=== PATIENT | female | born 1970 | race Caucasian/White ===

== ENCOUNTER 2023-10-08 08:49 | Outpatient (CLI) | payer BC, SELFPAY ==
--- OUTSIDE RECORDS SUMMARY | 2023-10-08 08:52 | XMS_ITS | Encounter Summary ---
Author Organization [facility] er Address [address] [place] [id number] Care Team Providers Care Whiskey Regauger Name Role Phone Rajan Montez MD Primary Care Provider [phone] Reason for Visit * Reason Comments Med Refill Encounter Details Date Type Department Care Team (Late st Contact Info) Description 12/20/2021 Refill [place] [address] [address] Anabella Menon MD 170[facility] [address] [place] [address] Essential hypertension Social History Tobacco Use Types Packs/Day Years Used Date Smoking Tobacco: Former Cigarettes 0.3 10 Smokeless Tobacco: Never Alcohol Use Standard Drinks/Week Comments Yes 2 (1 standard drink = 0.6 oz pur e alcohol) AUDIT-C Answer Date Recorded Q1: How often do you have a drink containing alc ohol? 2-3 times a week 01/08/2020 Q2: How many drinks containi ng alcohol do you have on a typical day when you are drinking? 1 or 2 01/08/2020 Frequency of Binge Drinking Not on file 12/29 PHQ-2 Answer Date Recorded PHQ-2 Score 0 02/20/2019 Sex and Gender Information Value Date Recorded Sex Assigned at Not on file Gender Identity Not on file Sexual Orientation Not on file documented as of this encounter Miscellaneous Notes * Telephone Encounter - Anabella Menon MD - 12/22/2021 7:44 AM CDT Guillermo I will have you review Diane Larry request for her Cozaar. * Telephone Encounter - Cheryle Vásquez MA - 12/22/2021 6:07 AM CDT Last visit in provider department: 01/08/2020 Last visit requested medication was discussed: 01/08/2020 Last Rx: 07/05/2021 # 90, 1 refill Requested Prescriptions Pending Prescriptions Disp Refills ??? losartan (COZAAR) 25 MG tablet [Pharmacy Med Name: LOSARTAN TAB 25MG] 90 tablet 1 Sig: TAKE 1 TABLET DAILY FOR BLOOD PRESSURE Vitals: BP Readings from Last 2 Encounters: 01/08/20 124/80 08/07/19 124/88 Upcoming appointment with provider: Visit date not found Pt due to be seen. Please work with your PSR to help pt set up appt. Please advise on extension until appt. documented in this encounter Plan of Treatment Not on file documented as of this encounter Visit Diagnoses Diagnosis Essential hypertension Unspecified essential hypertension documented in this encounter Care Teams Whiskey Regauger Relationship Specialty Start Date End Date Rajan Montez MD [address] [facility] [address] [place] [address] PCP - General Family Medicine 05/11/22 documented as of this encounter
--- OUTSIDE RECORDS SUMMARY | 2023-10-08 08:52 | XMS_ITS | Clinical Summary ---
Author Organization [facility] er Address [address] [place] [address] Care Team Providers Care Chemistry Teacher Name Role Phone Rajan Montez MD Primary Care Provider [phone] Allergies Active Allergy Reactions Criticality Noted Date Comments Seasonal Other (see comments) Low 08/14/2019 Watery eyes Medications Medication Sig Dispensed Refills Start Date End Date Status Multiple Vitamins-Minerals (DAILY MULTIVITAMIN) capsule Take by mouth 1 (one) time each day Active MAGNESIUM-POTASSIUM PO Take 2 tablets by mouth 1 (one) time each day Active UNABLE TO FIND Med Name: [place], Wild Lettuce, Valerian, Wyocena's Warts, Passion Flower, Milky Oats Active Ferrous Sulfate (Iron) 325 (65 Fe) MG tablet Take by mouth Active fluconazole (Diflucan) 150 MG tabletIndications:Int ertrigo Take one tablet by mouth weekly for 4 weeks. 4 tablet 12/04/2022 Active gabapentin (Neurontin) 600 MG tabletIndications:Hot flashes Take 1 tablet (600 mg total) by mouth 2 (two) times a day 180 tablet 2 01/01/2023 Active amLODIPine (NORVASC) 5 MG tabletIndications:[place] hypertension TAKE 1 TABLET EVERY NIGHT 90 tablet 1 04/29/2023 Active losartan (COZAAR) 25 MG tabletIndications:[place] hypertension TAKE 1 TABLET TWICE A DAY FOR BLOOD PRESSURE 180 tablet 08/01/2023 Active Active Problems Problem Noted Date Diagnosed Date Menopausal symptoms 05/12/2022 Hot flashes 05/12/2022 Primary hypertension 02/28/2022 Encounters Date Type Department Care Team Description 07/30/2023 Refill [place] [address] [place] [address] Rajan Montez MD Primary hypertension from Last 3 Months Immunizations Name Administration Dates Next Due Influenza 6mo-64yrs Quad Preservative Free IM Tdap 06/01/2016 Family History Medical History Relation Comments Multiple sclerosis Daughter Dementia Father lewy body flores [place] Fibromyalgia Mother Thyroid cancer Paternal Grandmother Relation Status Comments Brother Alive Daughter Alive Father Mother Alive Paternal Grandmother Sister Alive Son Alive Social History Tobacco Use Types Packs/Day Years Used Date Smoking Tobacco: Former Cigarettes 0.3 10 1 999 - 2008 Smokeless Tobacco: Never Tobacco Cessation:Counseling Given: No Alcohol Use Standard Drinks/Week Comments Yes 2 [...] on file 12/29 PHQ-2 Answer Date Recorded PHQ-9 Total Score 0 12/04/2022 Sex and Gender Information Value Date Recorded Sex Assigned at Not on file Gender Identity Not on file Sexual Orientation Not on file Last Filed Vital Signs Vital Sign Reading Time Taken Comments Blood Pressure 137/93 12/04/2022 2:05 PM CDT Pulse 78 12/04/2022 2:05 PM CDT Temperature 36.9 ??C (98.4 ??F) 12/04/2022 2:05 PM CD T Respiratory Rate 12 12/04/2022 2:05 PM CDT Oxygen Saturation 97% 12/04/2022 2:05 PM CDT Inhaled Oxygen Concentration - - Weight 75.4 kg (166 lb 4.8 oz) 12/04/2022 2:05 P M CDT Height 168.5 cm (5' 6.34) 12/04/2022 2:05 PM CD T Body Mass Index 26.57 12/04/2022 2:05 PM CDT Plan of Treatment Health Maintenance Due Date Last Done Comments CT Colonography 1970 Colonoscopy 1970 Colorectal Cancer Screening 1970 FIT-DNA 1970 Sigmoidoscopy 1970 iFOBT 1970 Zoster Vaccines (1 of 2) 2020 COVID-19 Vaccine (3 - 2022-2 4 season) 2022 08/24/2020, 07/15/2020 Mammogram 03/22/2023 03/22/2022 Pap Smear 04/06/2023 04/06/2020, 04/06/2020 Influenza Vaccine (Season Ended) 2023 04/06/2020 DTaP,Tdap,and Td Vaccines (2 - Td or Tdap) 06/01/2026 06/01/2016 HPV Vaccines Aged Out No longer eligi ble based on patient's age to complete this topic Pneumococcal Vaccine: Pediatrics (0 to 5 Years) and At-Risk Patients (6 to 64 Years) Aged Out No longer eligible b ased on patient's age to complete this topic Procedures Procedure Name Priority Date/Time Associated Diagnosis Comments PAP TEST Routine 04/06/2020 3:50 PM OFFICE HELPER CLERICAL from Last 3 Months or Most Recently Relevant to Health Maintenance Care Teams Chemistry Teacher Relationship Specialty Start Date End Date Rajan Montez MD [address] [place] [address] PCP - General Family Medicine 05/11/22
--- OUTSIDE RECORDS SUMMARY | 2023-10-08 08:52 | XMS_ITS | Clinical Summary ---
Author [facility] Address [address] [place] [address] Care Team Providers Care Inspector Crystal Name Role Phone Pcp, Pt Declines Primary Care Provider [phone] Source Comments You are receiving this document as you are listed as the primary care provider,follow-up provider, or the patient has been referred to you for consultation.This is in compliance with the Medicare and[facility] EHR Incentive Program,which states Providers who transition their patient to another setting of careor provider of care or refers their patient to another provider of care shouldprovide summary care record for each transition of care or referral. [place] Allergies No known active allergies Medications Medication Sig Dispensed Refills Start Date End Date Status losartan (COZAAR) 25 MG tablet 10/17/2019 Active HYDROcodone-acetamino phen (NORCO) 5-325 MG tablet Take 1-2 Tablets by mouth every 4 hours as needed for Pain (severe pain). 30 Tablet 01/15/2020 Active Additional Information Patient not taking.Reported on 02/16/2020 ketorolac (TORADOL) 10 MG tablet Take 1 Tablet by mouth every 6 hours. Take every 6 hours for 3 days, then as needed. 20 Tablet 01/15/2020 Active Additional Information Patient not taking.Reported on 01/26/2020 ondansetron (ZOFRAN-ODT) 4 MG disintegrating tablet Take 1 Tablet by mouth every 6 hours as needed for Nausea. 10 Tablet 01/15/2020 Active Additional Information Patient not taking.Reported on 01/26/2020 hydrOXYzine HCl (ATARAX) 25 MG tablet Take 1 Tablet by mouth every 6 hours as needed for Itching, Anxiety or Pain. 15 Tablet 01/15/2020 Active Additional Information Patient not taking.Reported on 07/21/2020 Social History Tobacco Use Types Packs/Day Years Used Date Smoking Tobacco: Former Smokeless Tobacco: Never Alcohol Use Standard Drinks/Week Comments Not Asked 2 (1 standard drink = 0.6 oz pur e alcohol) Sex and Gender Information Value Date Recorded Sex Assigned at Not on file Gender Identity Not on file Sexual Orientation Not on file Last Filed Vital Signs Vital Sign Reading Time Taken Comments Blood Pressure 131/83 01/15/2020 2:37 PM CDT Pulse 54 01/15/2020 2:37 PM CDT Temperature 36.4 ??C (97.6 ??F) 01/15/2020 1:40 PM CD T Respiratory Rate 16 01/15/2020 2:37 PM CDT Oxygen Saturation 100% 01/15/2020 2:37 PM CDT Inhaled Oxygen Concentration - - Weight 62.6 kg (138 lb) 01/15/2020 8:30 AM CDT Height 166.4 cm (5' 5.5) 01/15/2020 8:30 AM CDT Body Mass Index 22.62 01/15/2020 8:30 AM CDT Plan of Treatment Health Maintenance Due Date Last Done Comments Cervical Cancer Screening Due 1970 Colon Cancer Screening Plan Due 1970 Hep C Screening (Preventive Services) 1970 HIV Screening (Preventive Services) 1986 Adult Preventive Visit 1988 HepB (1) 1989 Cholesterol 2015 Zoster/Shingles (1 of 2) 2020 Mammogram 04/09/2021 04/09/2020 COVID-19 Vaccine (3 - 2022-2 4 season) 2022 08/24/2020, 07/15/2020 Influenza (Season Ended) 2023 04/06/2020 DTaP/Tdap/Td (2 - Tdap) 06/01/2026 06/01/2016 HepA Aged Out No longer eligi ble based on patient's age to complete this topic Hib Aged Out No longer eligi ble based on patient's age to complete this topic IPV (Polio) Aged Out No longer eligi ble based on patient's age to complete this topic MCV4 Aged Out No longer eligi ble based on patient's age to complete this topic Pneumococcal Aged Out No longer eligi ble based on patient's age to complete this topic Medical Devices Implanted Type Area Outreach Liaison Device Identifier Shelf Expiration Date Model / Serial / Lot Scr Fast Thrd Bc If 8.0x20 - [id number] Implanted:Qty: 2 on 01/15/2020 by Luis Cerrato MD at [facility] Right: [employer] 09/28/2023 [id number] / [id number] Advance Directives * Full Code (Latest Code Status on File) Date Activated Date Inactivated Comments 01/15/2020 1:08 PM 01/15/2020 6:26 PM Full code in effect for 30 days Care Teams Inspector Crystal Relationship Specialty Start Date End Date Pcp, [place] [address] PCP - General 10/20/19
--- OUTSIDE RECORDS SUMMARY | 2023-10-08 08:52 | XMS_ITS | Encounter Summary ---
Author Organization [facility] er Address [address] [place] [address] Care Team Providers Care Utilities Service Investigator Name Role Phone Rajan Montez MD Primary Care Provider [phone] Encounter Details Date Type Department Care Team ([facility] st Contact Info) Description 08/07/2019 Telephone [place] [address] [place] [address] None, Pcp [address] [place] [address] Social History Tobacco Use Types Packs/Day Years Used Date Smoking Tobacco: Never Smokeless Tobacco: Never Alcohol Use Standard Drinks/Week Comments Yes 0 (1 standard drink = 0.6 oz pur e alcohol) AUDIT-C Answer Date Recorded Frequency of Alcohol Consumption 2-3 times a wee k 02/20/2019 Average Number of Drinks 1 or 2 019 Frequency of Binge Drinking Not on file 01/29 PHQ-2 Answer Date Recorded PHQ-2 Score 0 02/20/2019 Sex and Gender Information Value Date Recorded Sex Assigned at Not on file Gender Identity Not on file Sexual Orientation Not on file COVID-19 Exposure Response Date Recorded In the last month, have you been in contact with someone who was confirmed or suspected to have Coronavirus / COVID-19? No / Unsure 08/07/2019 8:05 AM CDT documented as of this encounter Plan of Treatment Not on file documented as of this encounter Visit Diagnoses Not on filedocumented in this encounter Care Teams Utilities Service Investigator Relationship Specialty Start Date End Date Rajan Montez MD [address] [address] [place] [address] PCP - General Family Medicine 05/11/22 documented as of this encounter
--- OUTSIDE RECORDS SUMMARY | 2023-10-08 08:52 | XMS_ITS | Encounter Summary ---
Author Organization [facility] er Address [address] [place] [address] Care Team Providers Care End User Consultant Name Role Phone Rajan Montez MD Primary Care Provider [phone] Reason for Visit * Reason Comments Med Refill Encounter Details Date Type Department Care Team (Late st Contact Info) Description 07/30/2023 Refill [place] [address] [address] Rajan Montez MD 170[facility] [address] [place] [address] Primary hypertension Social History Tobacco Use Types Packs/Day Years Used Date Smoking Tobacco: Former Cigarettes 0.3 10 1 - 2008 Smokeless Tobacco: Never Alcohol Use Standard Drinks/Week [...] encounter Miscellaneous Notes * Telephone Encounter - Amina Cabrera RN - 08/02/2023 7:55 AM CDT Medication approved. Pharmacy will reach out to patient when rx is ready for continuous pickling line pickler. * Telephone Encounter - Joanne Trotter MA - 08/01/2023 4:30 PM CDT Patient is due for HTN follow up med review appointment. PSR: Please contact patient to assist withscheduling. Upcoming appointment with provider: Visit date not found Last visit in provider department: 12/04/2022 Last visit requested medication was discussed: 06/02/2022 Last Rx: #180 +3 refills 06/02/2022 Requested Prescriptions Pending Prescriptions Disp Refills losartan (COZAAR) 25 MG tablet [Pharmacy Med Name: LOSARTAN TAB 25MG] 180 tablet 3 Sig: TAKE 1 TABLET TWICE A DAY FOR BLOOD PRESSURE Labs: Last labs [email or web address] 02/28/2022 Vitals: BP Readings from Last 2 Encounters: 12/04/22 (!) 137/93 11/24/22 113/76 documented in this encounter Plan of Treatment Not on file documented as of this encounter Visit Diagnoses Diagnosis Primary hypertension Unspecified essential hypertension documented in this encounter Care Teams End User Consultant Relationship Specialty Start Date End Date Rajan Montez MD [address] [place] [address] PCP - General Family Medicine 05/11/22 documented as of this encounter
--- OUTSIDE RECORDS SUMMARY | 2023-10-08 08:52 | XMS_ITS | Encounter Summary ---
Author Organization [facility] er Address [address] [place] [address] Care Team Providers Care Pocket Maker Name Role Phone Rajan Montez MD Primary Care Provider [phone] Reason for Visit * Reason Onset Date Comments Med Refill 11/13/2022 Encounter Details Date Type Department Care Team (Late st Contact Info) Description 11/13/2022 Refill [place] [address] [address] Rajan Montez MD 170[facility] [address] [place] [address] Hot flashes Social History Tobacco Use Types Packs/Day Years [...] PHQ-2 Answer Date Recorded PHQ-9 Total Score 1 06/02/2022 Sex and Gender Information Value Date Recorded Sex Assigned at Not on file Gender Identity Not on file Sexual Orientation Not on file documented as of this encounter Miscellaneous Notes * Telephone Encounter - Isha Ramsey - 11/23/2022 10:47 AM CDT Scheduled nurse only BP check for 11/24/22 * Telephone Encounter - Isha Ramsey - 11/13/2022 11:08 AM CDT LMTCB to schedule nurse only BP visit. * Telephone Encounter - Tova Charles RN - 11/13/2022 10:55 AM CDT Please call to schedule a nurse only BP visit. * Telephone Encounter - Rajan Montez MD - 11/13/2022 10:32 AM CDT Gabapentin refilled. Please have her send us or stop in for a blood pressure recheck. * Telephone Encounter - Selma Thorpe LPN - 11/13/2022 10:16 AM CDT Change in Pharmacy to [facility] Upcoming appointment with provider: Visit date not found Last visit in provider department: 06/02/2022 Last visit requested medication was discussed:06/02/22 Last Rx: 08/17/22 #90 3 refills sent to [facility] in [place] Requested Prescriptions Pending Prescriptions Disp Refills gabapentin (Neurontin) 600 MG tablet 90 tablet 3 Sig: Take 0.5 tablets (300 mg total) by mouth 2 (two) times a day if needed (hot flashes) Labs: Vitals: BP Readings from Last 2 Encounters: 06/02/22 (!) 142/81 05/11/22 (!) 158/98 Last Controlled Substance Agreement (CSA): Last Random Urine Drug Screen (RUDS): documented in this encounter Plan of Treatment Not on file documented as of this encounter Visit Diagnoses Diagnosis Hot flashes documented in this encounter Care Teams Pocket Maker Relationship Specialty Start Date End Date Rajan Montez MD [address] [place] [address] PCP - General Family Medicine 05/11/22 documented as of this encounter
--- OUTSIDE RECORDS SUMMARY | 2023-10-08 08:52 | XMS_ITS | Clinical Summary ---
Author Organization [facility] Address [place], [place] [address] Care Team Providers Care Expert Witness Name Role Phone Katie Servin CHICKEN PICKER Unavailable Pcp, No Primary Care Provider Unavailabl e Allergies No known active allergies Medications Medication Sig Dispensed Refills Start Date End Date Status losartan (COZAAR) 25 mg tabletIndications:HTN (hypertension) Take 1 Tablet (25 mg) by mouth once daily. 90 Tablet 3 03/07/2022 Active Active Problems Problem Noted Date Diagnosed Date HTN (hypertension) 02/28/2022 Immunizations Name Administration Dates Next Due Influenza, IIV4 04/06/2020 Tdap 06/01/2016 Family History Medical History Relation Name Comments No Known Problems Brother Multiple sclerosis Daughter Sandhya Thyroid Disease Daughter Sandhya Hypothyroidi sm Dementia Father Lewy-Body Demen tia Other Mother fibromyalgia Thyroid Disease Mother Cancer-breast Paternal Aunt 1 Thyroid cancer Paternal Aunt 2 Diabetes Paternal Grandfather Diabetes Paternal Grandmother Kidney disease Sister unknown origi n No Known Problems Son Religious Cancer-ovarian No Family History Relation Name Status Comments Brother Alive Daughter Sandhya Alive Father Alive Mother Alive Paternal Aunt 1 Alive Paternal Aunt 2 Alive Paternal Grandfather Paternal Grandmother Sister Alive Son Religious Alive Social History Tobacco Use Types Packs/Day Years Used Date Smoking Tobacco: Never Smokeless Tobacco: Never Tobacco Cessation:Counseling Given: Yes Alcohol Use Standard Drinks/Week Comments Yes 3 (1 standard drink = 0.6 oz pur e alcohol) everyday PHQ-2 Answer Date Recorded PHQ-2 TOTAL SCORE 1 04/06/2020 Social Connections Answer Date Recorded Frequency of Communication with Friends and Fami ly Not on file 04/30/2021 Financial Resource Strain Answer Date R ecorded Difficulty of Paying Living Expenses Not on file 04/30/2021 Difficulty of Paying Living Expenses Not on file 04/30/2021 Sex and Gender Information Value Date Recorded Sex Assigned at Not on file Gender Identity Not on file Sexual Orientation Not on file Obstetrics History Para Term AB IAB SAB Ectopic Multiple Livin g Live Births 1 0 0 0 0 0 0 0 Date Outcome GA Total Labor Labor/2nd/3rd Weight Sex Type Anes PTL Clarissa A1 A5 Name Clin Comments:System Genera kirk. Please review and update details. Last Filed Vital Signs Vital Sign Reading Time Taken Comments Blood Pressure 132/86 02/28/2022 8:28 AM CDT Pulse 71 02/28/2022 8:28 AM CDT Temperature 36.9 ??C (98.5 ??F) 02/22/2016 3:51 PM CD T Respiratory Rate 16 02/22/2016 3:51 PM CDT Oxygen Saturation 100% 02/28/2022 8:28 AM CDT Inhaled Oxygen Concentration - - Weight 69.2 kg (152 lb 9.6 oz) 02/28/2022 8:28 A M CDT Height 165.1 cm (5' 5) 04/06/2020 3:11 PM CASE RESOURCE MANAGER Body Mass Index 25.39 04/06/2020 3:11 PM CASE RESOURCE MANAGER Plan of Treatment Health Maintenance Due Date Last Done Comments HIV for age 15-65 1985 Colonoscopy through age 75 2015 Zoster (shingles) series for age 50+ (1 of 2) 2020 BMI (ht and wt on same day) for age 18+ 04/06/2021 04/06/2020 Depression screening for age 12+ 04/09/2021 04/09/2020, 04/06/2020 COVID-19 vaccine series ( season) 2022 08/24/2020, 07/15/2020 Mammogram for age 45-75 03/22/2023 03/22/20 22, 04/09/2020 Influenza for age 50-64 12/30/2023 04/06/2020 Pap test for age 21-65 04/06/2025 0, 04/06/2020 Tetanus booster 06/01/2026 06/01/2016 Lipids for age 45-75 02/28/2027 02/28/2022, 04/06/2020 Tdap Completed 06/01/2016 Hepatitis C screening for ag e 18-79 Completed 02/28/2022 Pneumococcal series for age 6-64 Aged Out No longer eligible b ased on patient's age to complete this topic Procedures Procedure Name Priority Date/Time Associated Diagnosis Comments XR MAMMO BILAT SCREEN IMPLANT Routine 03/22/2022 4:39 PM CASE RESOURCE MANAGER Encounter for screening mammogram for malignant neoplasm of breast ANTI HCV Routine 02/28/2022 9:10 AM CDT Need for hepatitis C screening test LIPID PANEL W REFLEX MEASURED LDL Routine 02/28/2022 9:10 AM CDT Screening cholesterol level INDUSTRIAL RELATIONS WORKER THIN PREP PAP SCREEN IMAGED Routine 04/06/2020 3:50 PM CASE RESOURCE MANAGER Pap smear for cervical cancer screening from Last 3 Months or Most Recently Relevant to Health Maintenance Results * XR MAMMO BILAT SCREEN IMPLANT (03/22/2022 4:39 PM CASE RESOURCE MANAGER) Anatomical Region Laterality Modality BREASTS, Breast Left, Breast Right Bilateral Mammography Impressions 03/24/2022 4:21 PM CASE RESOURCE MANAGER ??There is no radiographic evidence for malignancy. ??Recommend annual mammograms. MAMMOGRAM ASSESSMENT: ??ACR 2 Benign PATIENTS: You will also receive a letter with your examination results in an easy to read format. ??If you have questions about your results, please contact your referring provider. Narrative 03/24/2022 4:21 PM CASE RESOURCE MANAGER For Patients: As a result of the Century Cures Act, medical imaging exams and procedure reports are released immediately into your electronic medical record. You may view this report before your referring provider. If you have questions, please contact your health care provider. XR MAMMO BILAT SCREEN IMPLANT [[id number]] CLINICAL HISTORY: ??This is an asymptomatic 51 y.o. patient. INDICATION FOR EXAM: Mammogram Screening. TECHNIQUE: CC & MLO views were obtained. Implant displacement views were obtained. This study was evaluated with the assistance of Computer-Aided Detection. COMPARISON FILMS: Yes 04/09/20 [employer] ?? FINDINGS: ??The breasts are heterogeneously dense, which may obscure small masses. ??No suspicious masses or microcalcifications. ??Implant(s) within both breasts. Sarai Perezanamaria DO MAMMO * LIPID PANEL W REFLEX MEASURED LDL (02/28/2022 9:10 AM CDT) CHOLESTEROL,TOTAL 171 100 - 199 mg/dL 02/28/2022 9:59 PM CDT [facility] [employer] [facility] TRIGLYCERIDES 28 <150 mg/dL 02/28/2022 9:59 PM CDT [facility] HDL CHOLESTEROL 60 >40 mg/dL 9:59 PM CDT [facility] NON-HDL CHOLESTEROL 111 <145 mg/dl 02/28/2022 9:59 PM CDT [facility] CHOL/HDL RATIO 2.85 <4.50 02/28/2022 9:59 PM CDT [facility] LDL CHOLESTEROL 105 <=130 mg/dL 02/28/2022 9:59 PM CDT [facility] VLDL CHOLESTEROL 6 <=30 mg/dL 02/28/2022 9:59 PM CDT [facility] PROVIDER ORDERED STATUS RANDOM 02/28/2022 9:59 PM CDT [facility] Blood BLOOD SPECIMEN / Unknown Venipuncture / Unknown 02/28/2022 9:10 AM CDT 02/28/2022 9:10 AM CDT Sarai Clarissa Nini [facility] [address] [place] [address], * ANTI HCV (02/28/2022 9:10 AM CDT) HEPATITIS C ANTIBODY Non-React bentley Non-React bentley 02/28/2022 10:27 PM CDT [facility] Comment:Antibodies to HCV no t detected; does not exclude the possibility of exposure to HCV. Blood BLOOD SPECIMEN / Unknown Venipuncture / Unknown 02/28/2022 9:10 AM CDT 02/28/2022 9:10 AM CDT Sarai Terrazas DO SEND OUTS [facility]-CENTRAL LABORATORY [address] [place] [address], * INDUSTRIAL RELATIONS WORKER THIN PREP PAP SCREEN IMAGED (04/06/2020 3:50 PM CASE RESOURCE MANAGER) Case Report Gynecologic Cytology Report ? Case: [id number] ? Authorizing Provider: ??Chantal Mann, ??Collected: ? 04/06/2020 1550 ? PA ? Ordering Location: ? [facility] ?? Received: ?04/06/2020 1616 ? Clinic ? First Screen: ?Francois Vazquez ? Specimen: ?INDUSTRIAL RELATIONS WORKER ThinPrep Vial Screening, Cervical ? 04/15/2020 2:37 PM CASE RESOURCE MANAGER [facility] [employer] [facility] INTERPRETATION/ RESULT NEGATIVE FOR INTRAEPITHELIAL LESION OR MALIGNANCY (NIL) (none) 04/15/2020 2:37 PM CASE RESOURCE MANAGER [facility] IMEN ADEQUACY Satisfactory for evaluation No endocervical component seen 04/15/2020 2:37 PM CASE RESOURCE MANAGER [facility] HPV REQUEST HPV and PAP 04/15/2020 2:37 PM CASE RESOURCE MANAGER [facility] [employer] [facility] Date of LMP 01/29/2020 04/15/2020 2:37 PM CASE RESOURCE MANAGER [facility] Last Pap Date unknown 04/15/2020 2:37 PM CASE RESOURCE MANAGER [facility] Last Pap Result First Pap/Unknown 2:37 PM CASE RESOURCE MANAGER [facility] Abnormal Pap or [place] Bx in last 5 years No 04/15/2020 2:37 PM CASE RESOURCE MANAGER [facility] Menstrual Status Perimenopausal 04/15/2020 2:37 PM CASE RESOURCE MANAGER [facility] [place] Bx Done Today No 04/15/2020 2:37 PM CASE RESOURCE MANAGER [facility] Additional Information None given 04/15/2020 2:37 PM CASE RESOURCE MANAGER [facility] EN[facility] Comment: Cytology is screened at [facility], Central Laboratory - [address], [place] [address] and [facility] - [address] [place] [address], [place] [address] and [facility] - [address], [place] [address] Interpreted at [facility] - [address], [place] [address] Automated Review Successful 04/15/2020 2:37 PM CASE RESOURCE MANAGER [facility] [employer] LABORATORY-C ENTRAL LABORATORY Comment:Specimen processed s uccessfully by automated solidworks mechanical designer device, ThinPrep Imaging System, [employer] ANCILLARY TESTING INDUSTRIAL RELATIONS WORKER HPV Ordered, Please see separate report 04/15/2020 2:37 PM CASE RESOURCE MANAGER [facility] LABOR[facility]-C ENTRNC LABORATORY Note The pap test is a screening technique, not a diagnostic procedure. It is used primarily to screen for squamous cancers and precursor lesions. Published studies have shown that it is subject to both false negative and false positive results. The pap test should not be used as the sole means to diagnose or exclude pre-malignant and malignant lesions. 04/15/2020 2:37 PM CASE RESOURCE MANAGER [facility]- ENTRNC LABORATORY Other (Cervical) Non-Blood / Unknown 04/06/2020 3:50 PM CASE RESOURCE MANAGER 04/06/2020 4:16 PM CASE RESOURCE MANAGER Chantal FREED PATHOLOGY/[facility] [address] [place] [address], [place] from Last 3 Months or Most Recently Relevant to Health Maintenance Care Teams Expert Witness Relationship Specialty Start Date End Date Pcp, No . PCP - General 03/03/22 Katie Servin NP Family Practice 02/22/16
--- OUTSIDE RECORDS SUMMARY | 2023-10-08 08:52 | XMS_ITS | Encounter Summary ---
Author Organization [facility] er Address [address] [place] [address] Care Team Providers Care Undercover Operator Name Role Phone Rajan Montez MD Primary Care Provider [phone] Reason for Visit * Reason Comments Med Refill Encounter Details Date Type Department Care Team (Late st Contact Info) Description 07/02/2021 Refill [facility] [address] [address] Anabella Menon MD [address] [facility] [address] [place] [address] Essential hypertension Social History Tobacco Use Types [...] encounter Miscellaneous Notes * Telephone Encounter - Mickie Cam LPN - 02/16/2022 3:08 PM CDT Noted, please send letter as you see fit. * Telephone Encounter - Thais Mccloud - 02/16/2022 3:00 PM CDT Left message stating Pt is due for her annual exam, also asked if Pt has taken cares elsewhere to please let us know. Multiple attempts to reach Pt. Please send letter if deemed necessary. * Telephone Encounter - Thais Mccloud - 11/07/2021 3:13 PM CDT Left message to verify if OV/labs are needed here to refill meds or if Pt has taken her primary care elsewhere. * Telephone Encounter - Thais Mccloud - 07/14/2021 9:15 AM CDT Left message requesting OV and also asked for Pt to let us now if she has taken her cares elsewhere. * Telephone Encounter - Tova Charles RN - 07/05/2021 8:45 AM CST Please call patient to schedule a visit with fasting labs if she has transferred cares please change PCP to who she is seeing. TRIC KNIFE OPERATOR * Telephone Encounter - Tova Charles RN - 07/05/2021 8:03 AM CST Please review request. TRIC KNIFE OPERATOR * Telephone Encounter - Cheryle Vásquez MA - 07/05/2021 7:52 AM CST Last visit in provider department: 01/08/2020 Pre-op Last visit requested medication was discussed: 02/20/2019 Upcoming appointment with provider: none Last Rx: 04/29/2020 # 90, 3 refill Requested Prescriptions Pending Prescriptions Disp Refills ??? losartan (COZAAR) 25 MG tablet [Pharmacy Med Name: LOSARTAN TAB 25MG] 90 tablet 3 Sig: TAKE 1 TABLET DAILY FOR BLOOD PRESSURE Labs: 01/08/2020 C8 Vitals: BP Readings from Last 2 Encounters: 01/08/20 124/80 08/07/19 124/88 Pt due to be seen. Please work with your PSR to help pt set up appt. Please advise on extension until appt. TRIC KNIFE OPERATOR documented in this encounter Plan of Treatment Not on file documented as of this encounter Visit Diagnoses Diagnosis Essential hypertension Unspecified essential hypertension documented in this encounter Care Teams Undercover Operator Relationship Specialty Start Date End Date Rajan Montez MD [address] [facility] [address] [place] [address] PCP - General Family Medicine 05/11/22 documented as of this encounter
== END 2023-10-08 08:50 | disposition home or self-care (01) ==
PROVIDERS: PCP Nurse Practitioner Family; Visit Provider Nurse Practitioner Family
DX: I10 Essential (primary) hypertension (principal); R00.2 Palpitations; Z13.220 Encounter for screening for lipoid disorders; Z13.29 Encounter for screening for other suspected endocrine disorder
CPT/HCPCS: 80053; 80061; 84443; 85025

== ENCOUNTER 2025-01-12 10:05 | Outpatient (CLI) | payer BC, SELFPAY ==
--- NOTE | 2025-01-12 11:47 | P.ANES_ITS ---
Anesthesia Charges Start Date/Time Anesthesia Start Date: 01/12/25 Anesthesia Start Time: 11:19 Stop Date/Time Anesthesia Stop Date: 01/12/25 Anesthesia Stop Time: 11:43 Coding CPT Codes CPT Codes: ANES LWR INTST SCR COLSC - 72310 ([id number]) P2 - PATIENT W/MILD SYST DISEASE, QZ - HUMAN INTELLIGENCE SVC W/O LUMBER YARD WORKER BY
--- NOTE | 2025-01-12 11:47 | W.ANESCHARGE ---
Anesthesia Charges Start Date/Time Anesthesia Start Date: 01/12/25 Anesthesia Start Time: 11:19 Stop Date/Time Anesthesia Stop Date: 01/12/25 Anesthesia Stop Time: 11:43 Coding CPT Codes CPT Codes: ANES LWR INTST SCR COLSC - 92521 ([id number]) P2 - PATIENT W/MILD SYST DISEASE, QZ - INTERNAL CONTROL CONSULTANT SVC W/O COMPOSITE BOAT BUILDER BY
== END 2025-01-12 10:06 | disposition home or self-care (01) ==
PROVIDERS: PCP Nurse Practitioner Family; Visit Provider Surgery
DX: Z12.11 Encounter for screening for malignant neoplasm of colon (principal)
CPT/HCPCS: 00812; 45378; J2704